=== PATIENT | male | born 1960 | race Two or more races ===

== ENCOUNTER → 2016-04-11 | Outpatient (CLI) | payer BC | END | disposition home or self-care (01) | LOC: RAD.S 04-10 11:45 | DX: R05 Cough (principal); R76.11 Nonspecific reaction to tuberculin skin test without active tuberculosis; J98.4 Other disorders of lung ==

== ENCOUNTER → 2016-05-17 | Outpatient (CLI) | payer BC | END | disposition home or self-care (01) | LOC: RAD.S 15:55 | DX: R05 Cough (principal); R76.11 Nonspecific reaction to tuberculin skin test without active tuberculosis; R91.8 Other nonspecific abnormal finding of lung field; J84.10 Pulmonary fibrosis, unspecified ==